=== PATIENT | female | born 2000 ===

== ENCOUNTER 2021-06-30 12:03 | Inpatient (IN) | payer MEDICAID ==
[2021-06-30] MEDS ORDERED: Citric Acid/Sodium Citrate Solution 30 ML Cup PO ONE (12:14)
[2021-06-30] MEDS ORDERED: ceFAZolin 2 GM in Premix Bag 1 BAG IV ONE (12:14)
[2021-06-30] MEDS ORDERED: Methylergonovine 0.2 MG/1 ML Amp IM PRN (12:14)
[2021-06-30] MEDS ORDERED: Sodium Chloride 0.9% 20 ML SDV IV PRN (12:14)
[2021-06-30] MEDS ORDERED: Butorphanol 1 MG/ML SDV IVPUSH PRN (12:14)
[2021-06-30] MEDS ORDERED: Tranexamic Acid 1,000 MG in Sodium Chloride 0.9% 100 ML IV PRN (12:14)
[2021-06-30] MEDS ORDERED: Carboprost Tromethamine 250 MCG/1 ML Amp IM PRN (12:14)
[2021-06-30] MEDS ORDERED: Water For Irrigation,Sterile 1,000 ML Container IRR PRN (12:14)
[2021-06-30] MEDS ORDERED: Sodium Chloride 0.9% 10 ML Syringe FLUSH PRN (12:14)
[2021-06-30] MEDS ORDERED: Misoprostol 200 MCG Tab PO PRN (12:14)
[2021-06-30] MEDS ORDERED: Sodium Chloride 0.9% 2.5 ML Syringe FLUSH PRN (12:14)
[2021-06-30] MEDS ORDERED: Lidocaine 1% 50 ML MDV INJECT PRN (12:14)
[2021-06-30] MEDS ORDERED: Oxytocin/0.9 % Sodium Chloride 30 UNIT/500 ML BAG IV SCH ×2 (12:15)
[2021-06-30] MEDS: Lactated Ringers 1,000 ML IV SCH ×3 (12:15→23:38)
[2021-06-30] MEDS ORDERED: Lactated Ringers 1,000 ML IV SCH (12:15)
[2021-06-30] MEDS ORDERED: Morphine PF 10 MG/10 ML SDV ONE (15:16)
[2021-06-30] MEDS ORDERED: Octyl 2-Cyanoacrylate 1 Tube ONE (15:18)
[2021-06-30] MEDS ORDERED: Bupivacaine 0.25% 10 ML SDV ONE (15:49)
[2021-06-30] MEDS ORDERED: Ketamine 500 mg/10 ML MDV ONE (16:00)
[2021-06-30] MEDS ORDERED: Succinylcholine/Sod PF 100 MG/5 ML SYRINGE IV ONE (16:03)
[2021-06-30] MEDS ORDERED: Propofol 200 MG/20 ML SDV ONE (16:03)
[2021-06-30] MEDS ORDERED: Ketorolac 30 MG/ML SDV ONE (16:51)
[2021-06-30] MEDS ORDERED: diphenhydrAMINE 50 MG/ML SDV IVPUSH PRN ×2 (17:01→17:03)
[2021-06-30] MEDS ORDERED: Ondansetron 4 MG/2 ML SDV IVPUSH PRN ×2 (17:01→17:03)
[2021-06-30] MEDS ORDERED: Acetaminophen/oxyCODONE 325-5 MG Tab PO PRN ×2 (17:01→17:03)
[2021-06-30] MEDS ORDERED: Naloxone 0.4 MG/ML SDV IVPUSH PRN (17:01)
[2021-06-30] MEDS ORDERED: Bisacodyl 10 MG Supp RECTAL PRN (17:03)
[2021-06-30] MEDS ORDERED: Ibuprofen 800 MG Tab PO PRN (17:03)
[2021-06-30] MEDS ORDERED: Oxytocin 10 Units/1 ML SDV IM PRN (17:03)
[2021-06-30] MEDS ORDERED: Lanolin 100% Cream 7 GM Tube TOP PRN (17:03)
[2021-06-30] MEDS ORDERED: Aluminum Hydroxide/Magnesium Hydroxide/Simethicone XS Susp 30 ML Cup PO PRN (17:03)
[2021-06-30] MEDS ORDERED: HYDROmorphone 1 MG/ML Syringe IVPUSH PRN (17:04)
[2021-06-30] MEDS ORDERED: fentaNYL 100 MCG/2 ML SDV ONE (17:09)
[2021-06-30] MEDS: fentaNYL 100 MCG/2 ML SDV IVPUSH PRN ×2 (17:12→17:26)
[2021-06-30] MEDS ORDERED: Ketorolac 30 MG/ML SDV IVPUSH SCH (17:15)
[2021-06-30] MEDS ORDERED: ceFAZolin 1 GM Vial ONE (17:27)
[2021-06-30] MEDS ORDERED: Oxytocin 10 Units/1 ML SDV ONE (17:27)
[2021-06-30] MEDS ORDERED: Water For Injection, Sterile 40 ML ONE (17:27)
[2021-06-30] MEDS: Acetaminophen/oxyCODONE 325-5 MG Tab PO PRN (19:53)
[2021-06-30] MEDS: Simethicone 80 MG Tab.Chew PO SCH (19:53)
[2021-06-30] MEDS: Ketorolac 30 MG/ML SDV IVPUSH SCH (23:35)
[2021-07-01] MEDS: Ketorolac 30 MG/ML SDV IVPUSH SCH ×3 (05:39→17:46)
[2021-07-01] MEDS: Simethicone 80 MG Tab.Chew PO SCH ×4 (05:40→17:46)
[2021-07-01] MEDS: Docusate Sodium 100 MG Cap PO SCH ×3 (07:32→21:52)
[2021-07-01] MEDS: Lactated Ringers 1,000 ML IV SCH (08:19)
[2021-07-01] MEDS: Acetaminophen/oxyCODONE 325-5 MG Tab PO PRN ×2 (13:44→21:52)
[2021-07-02] MEDS: Simethicone 80 MG Tab.Chew PO SCH ×3 (00:59→13:06)
[2021-07-02] MEDS: Docusate Sodium 100 MG Cap PO SCH (08:23)
== END 2021-07-02 14:05 | disposition home or self-care (01) | DRG 788 ==
LOC: MW.OBCHECK 12:03 → MW.OB 12:09 → MW.OBCHECK 16:00 → OBSVTOIN 16:08 → MW.OB 17:53
PROVIDERS: ADMIT Obstetrics & Gynecology; ATTEND Obstetrics & Gynecology
PROC: 10D00Z1 Extraction of Products of Conception, Low, Open Approach (ICD-10-PCS; principal; 2021-06-30)
DX: O48.0 Post-term pregnancy (principal); Z3A.40 40 weeks gestation of pregnancy; Z37.0 Single live birth; O77.0 Labor and delivery complicated by meconium in amniotic fluid; O34.211 Maternal care for low transverse scar from previous cesarean delivery; Z20.822 Contact with and (suspected) exposure to COVID-19
CPT/HCPCS: 36415; 59025; 82803; 85014; 85018; 85027; 86592; 86850; 86900; 86901; A9270-GY; J0330; J0690; J1885; J2274; J2370; J2590; J2704; J3010; J3490; J7120; U0002